=== PATIENT | female | born 1985 | race Caucasian/White ===

== ENCOUNTER 2024-01-23 14:03 | Emergency (ER) | payer OTHER ==
[2024-01-23] MEDS ORDERED: Sodium Chloride 0.9% 10 ML Syringe FLUSH PRN (14:30)
[2024-01-23 14:42] LABS: BASOPHILS ABSOLUTE AUTO 0.03 10^3/uL (0.00-0.10); BASOPHILS PERCENT AUTO 0.3 % (0.0-1.0); EOSINOPHILS ABSOLUTE AUTO 0.16 10^3/uL (0.10-0.30); EOSINOPHILS PERCENT AUTO 1.6 % (1.0-3.0); HEMATOCRIT 41.6 % (37.0-47.0); HEMOGLOBIN 13.8 g/dL (12.0-16.0); IMMATURE GRAN ABSOLUTE AUTO 0.02 10^3/uL (0.00-0.50); IMMATURE GRAN PERCENT AUTO 0.2 % (0.0-5.0); LYMPHOCYTES ABSOLUTE AUTO 2.97 10^3/uL (1.00-4.00); LYMPHOCYTES PERCENT AUTO 30.2 % (20.0-40.0); MEAN CORPUSCULAR HEMOGLOBIN 28.5 pg (27.0-31.0); MEAN CORPUSCULAR HGB CONC 33.2 g/dL (32.0-36.0); MEAN PLATELET VOLUME 9.1 fL (7.4-10.4); MONOCYTES ABSOLUTE AUTO 0.69 10^3/uL (0.10-0.80); NEUTROPHILS ABSOLUTE AUTO 5.98 10^3/uL (2.50-7.00); NEUTROPHILS PERCENT AUTO 60.7 % (50.0-70.0); PLATELET COUNT,PLT 315 10^3/uL (150-400); RED BLOOD CELL COUNT 4.84 10^6/uL (3.80-5.50); WHITE BLOOD CELL COUNT,WBC 9.85 10^3/uL (5.00-10.00)
[2024-01-23] MEDS: Sodium Chloride 0.9% 1,000 ML IV ONE (14:45)
[2024-01-23 14:59] LABS: ANION GAP 13.8 mmol/L (5-15); BLOOD UREA NITROGEN,BUN 12 mg/dL (7-18); CALCIUM 8.9 mg/dL (8.7-10.3); CARBON DIOXIDE,CO2 27.2 mmol/L (21.0-32.0); CHLORIDE,CL 102 mmol/L (98-107); CREATININE 0.69 mg/dL (0.51-1.17); EST CRCL DRUG DOSING (CG) 109.61 mL/min; GLUCOSE RANDOM 87 mg/dL (70-140); SODIUM,NA 139 mmol/L (136-145)
[2024-01-23 15:02] LABS: ESTIMATED GFR 115 mL/min (>=60); HCG QUALITATIVE,SERUM NEGATIVE (NEGATIVE)
== END 2024-01-23 15:50 | disposition home or self-care (01) ==
LOC: KA.ED 14:03
DX: G90.A Postural orthostatic tachycardia syndrome [POTS] (principal); R00.2 Palpitations; Z87.891 Personal history of nicotine dependence
CPT/HCPCS: 36415; 71045; 80048; 83735; 84484; 84703; 85025; 96360; 99285; J7030; 93010; 99284

== ENCOUNTER 2024-11-15 11:47 | Emergency (ER) | payer OTHER ==
[2024-11-15] MEDS ORDERED: Sodium Chloride 0.9% 10 ML Syringe FLUSH PRN (11:57)
[2024-11-15 12:08] LABS: BASOPHILS ABSOLUTE AUTO 0.04 10^3/uL (0.00-0.10); BASOPHILS PERCENT AUTO 0.4 % (0.0-1.0); EOSINOPHILS ABSOLUTE AUTO 0.17 10^3/uL (0.10-0.30); EOSINOPHILS PERCENT AUTO 1.7 % (1.0-3.0); HEMATOCRIT 41.4 % (37.0-47.0); HEMOGLOBIN 13.5 g/dL (12.0-16.0); IMMATURE GRAN ABSOLUTE AUTO 0.01 10^3/uL (0.00-0.04); IMMATURE GRAN PERCENT AUTO 0.1 % (0.0-0.4); LYMPHOCYTES ABSOLUTE AUTO 2.95 10^3/uL (1.00-4.00); LYMPHOCYTES PERCENT AUTO 29.9 % (20.0-40.0); MEAN CORPUSCULAR HEMOGLOBIN 27.7 pg (27.0-31.0); MEAN CORPUSCULAR HGB CONC 32.6 g/dL (32.0-36.0); MEAN CORPUSCULAR VOLUME 84.8 fL (82.0-92.0); MEAN PLATELET VOLUME 8.8 fL (7.4-10.4); MONOCYTES ABSOLUTE AUTO 0.63 10^3/uL (0.10-0.80); MONOCYTES PERCENT AUTO 6.4 % (2.0-8.0); NEUTROPHILS ABSOLUTE AUTO 6.07 10^3/uL (2.50-7.00); NEUTROPHILS PERCENT AUTO 61.5 % (50.0-70.0); PLATELET COUNT,PLT 320 10^3/uL (150-400); RED BLOOD CELL COUNT 4.88 10^6/uL (3.80-5.50); RED CELL DISTRIBUTION WIDTH 13.4 % (11.5-14.5); WHITE BLOOD CELL COUNT,WBC 9.87 10^3/uL (5.00-10.00)
[2024-11-15 12:17] LABS: APPEARANCE,URINE CLEAR (CLEAR); BILIRUBIN,URINE NEGATIVE (NEGATIVE); COLOR,URINE LIGHT YELLOW (YELLOW); GLUCOSE,URINE NEGATIVE (NEGATIVE); KETONES,URINE NEGATIVE (NEGATIVE); LEUKOCYTE ESTERASE,URINE NEGATIVE (NEGATIVE); NITRITE,URINE NEGATIVE (NEGATIVE); OCCULT BLOOD,URINE NEGATIVE (NEGATIVE); PROTEIN,URINE NEGATIVE (NEGATIVE); UROBILINOGEN,URINE 0.2 E.U./dL (0.2-1.0)
[2024-11-15 12:27] LABS: ALANINE AMINOTRANSFERASE,ALT 24 U/L (14-63); ALBUMIN 3.66 g/dL (3.40-5.00); ALKALINE PHOSPHATASE 106 U/L (46-116); AMYLASE 40 U/L (25-125); ANION GAP 13.2 mmol/L (5-15); ASPARTATE AMNIOTRANSFERASE,AST 19 U/L (15-37); BILIRUBIN TOTAL 0.2 mg/dL (0.2-1.0); BLOOD UREA NITROGEN,BUN 12 mg/dL (7-18); CALCIUM 9.2 mg/dL (8.7-10.3); CHLORIDE,CL 104 mmol/L (98-107); CREATININE 0.66 mg/dL (0.51-1.17); EST CRCL DRUG DOSING (CG) 113.49 mL/min; ESTIMATED GFR 116 mL/min (>=60); GLUCOSE RANDOM 86 mg/dL (70-140); LIPASE 55 U/L (16-77); POTASSIUM,K 4.2 mmol/L (3.5-5.1); PROTEIN TOTAL,TP 7.6 g/dL (6.4-8.2); SODIUM,NA 141 mmol/L (136-145)
[2024-11-15 12:30] LABS: HCG QUALITATIVE,SERUM NEGATIVE (NEGATIVE)
[2024-11-15] MEDS: Sodium Chloride 0.9% 1,000 ML IV ONE (12:38)
[2024-11-15] MEDS: Iopamidol 755 Mg/ML 100 ML Bottle IV ONE (13:04)
[2024-11-15] MEDS: Sodium Chloride 0.9% 50 ML IV SCH (13:04)
== END 2024-11-15 14:20 | disposition home or self-care (01) ==
LOC: KA.ED 11:47
DX: K92.0 Hematemesis (principal); B34.9 Viral infection, unspecified; N83.201 Unspecified ovarian cyst, right side; Z86.16 Personal history of COVID-19
CPT/HCPCS: 36415; 71046; 74177; 80053; 81003; 82150; 83690; 84484; 84703; 85025; 93010; 96360; 99284; 99285-25; J3490; J7030; Q9967